=== PATIENT | male | born 1995 | race Caucasian/White ===

== ENCOUNTER 2016-08-18 21:02 | Emergency (ER) | payer OTHER ==
[~2016-08-18] VITALS: Ht 172.7 cm; Wt 86.2 kg
[2016-08-18 21:09] VITALS: BP 131/80
[2016-08-18] MEDS ORDERED: TDAP [DIPH/PERTUSSIS/TET] 0.5 ML VIAL IM ONE ×2 (21:30→22:10)
[2016-08-18] MEDS ORDERED: LIDOCAINE 1% INJ 50 ML MDV IJ ONE (21:30)
== END 2016-08-18 22:21 | disposition home or self-care (01) ==
LOC: ER 21:08
DX: S61.012A Laceration without foreign body of left thumb without damage to nail, initial encounter (principal); Y28.8XXA Contact with other sharp object, undetermined intent, initial encounter; Y93.89 Activity, other specified; Y92.89 Other specified places as the place of occurrence of the external cause; Y99.0 Civilian activity done for income or pay
CPT/HCPCS: 12001; 90471; 90715; 99283; A4606; A6402; J3490; Z7610